=== PATIENT | female | born 1965 | race African-American/Black ===

== ENCOUNTER 2017-01-15 21:27 | Inpatient (IN) ==
[2017-01-15] MEDS ORDERED: ALBUTEROL/IPRATROPIUM 3 ML NEB RESP TX STA ×2 (21:49→22:46)
[2017-01-15] MEDS ORDERED: cefTRIAXone 1,000 MG in SODIUM CHLORIDE 0.9% 100 ML IV STA (21:49)
[2017-01-15] MEDS ORDERED: methylPREDNISolone SOD SUC 125 MG/2 ML VIAL IV STA (21:49)
[2017-01-15] MEDS ORDERED: cefTRIAXone 1,000 MG VIAL ONE (22:01)
[2017-01-15] MEDS ORDERED: methylPREDNISolone SOD SUC 125 MG/2 ML VIAL ONE (22:01)
[2017-01-15 22:24] LABS: Basophils % 0.3 % (0.0-0.8); Eosinophils # 0.1 10*3/uL (0.0-0.87); Eosinophils % 0.8 % (0.00-10.9); Hematocrit 39.5 VOL% (35.7-47.0); Hemoglobin 13.3 GM/DL (12.0-16.0); Immature Granulocytes % 0.3 %; Immature Granulocytes Absolute 0.02 #; Lymphocytes # 2.8 10*3/uL (1.4-4.0); Lymphocytes % 38.2 % (21.3-54.2); Mean Corpuscular HGB Conc 33.7 GM/DL (32-36); Mean Corpuscular Hemoglobin 35 PG (27-34); Mean Corpuscular Volume 102.9 FL (87-102); Mean Platelet Volume 12.1 FL (9.6-12.0); Monocytes # 0.5 10*3/uL (0.11-0.8); Monocytes % 6.8 % (1.7-12.7); Neutrophils # 3.9 10*3/uL (1.4-7.4); Neutrophils % 53.6 % (38.7-73.9); Platelet Count 220 T/CUMM (130-400); Red Blood Count 3.84 MC/CUMM (3.8-5.5); Red Cell Distribution Width 12.5 % (9.3-17.3); White Blood Count 7.2 T/CUMM (4-12)
[2017-01-15 22:36] LABS: Calcium 8.8 MG/DL (8.5-10.1); Magnesium 1.8 MG/DL (1.8-2.4); Osmolality,Calculated 293.8 MOS/KG (273-304); Potassium 3.5 MMOL/L (3.5-5.1)
[2017-01-15] MEDS ORDERED: SODIUM CHLORIDE 0.9% 1,000 ML IV STA (23:37)
[2017-01-15] MEDS ORDERED: INSULIN REGULAR 100 UNIT/ML IV STA (23:37)
[2017-01-15] MEDS ORDERED: INSULIN REGULAR 100 UNIT/ML ONE (23:56)
--- NOTE | 2017-01-16 | Emergency Department Note ---
ILor Emily, am scribing for, and in the presence of, Andrei Craig MD 21:55. Kiara Vidal Hans, MD, personally performed the services described in this documentation, ascribed by Helena Horowitz in my presence, and it is both accurate and complete . Arrival - Arrival Chief Complaint: Shortness of Breath Stated Complaint: ASTHMA/SINUS/RUNNY NOSE/COUGH ED Nursing Triage Note: Patient to triage with c/o productive cough and runny nose since last Sunday. Patient was seen in ED at that time and sent home with medication and has not had any relief of S/S. audible wheezing in triage. Patient c/o SOB with excertion. Mode of Arrival: Ambulatory Limitations: No Limitations Source: Patient Time Seen by Provider: 01/15/17 21:44 - History of Present Illness HPI Narrative: Pt is a 51 y/o female who came to ED with c/o productive cough and wheezing that has been ongoing since Sunday but has worsened. Pt has associated sxs of EASLEY and mucus is clear in color from cough. Pt is a current smoker but notes trying to quit. She states she was seen in ED on January 10 for same sxs and given IV abx with breathing tx and prescription of abx to take home. Pt reports seeing Dr. Chari Garcia the same day and was given a Z home instead of taking the other. Pt denies steroids taken. Pt reports using inhalers but no relief. Onset (ago): day(s) Consistency: constant Severity: mild, moderate Severity scale (1-10): 4 Quality: fullness Allergies/Adverse Reactions: Allergies Allergy/AdvReac Type Severity Reaction Status Date / Time No Known Allergies Allergy Verified 01/15/17 21:33 Home Medications: Home Medications Medication Instructions Recorded Confirmed Type Aspirin [Ecotrin] 81 mg PO DAILY 01/27/16 01/15/17 History Insulin Glargine,Hum.rec.anlog 30 unit SUBCUT AC SUPPER 01/27/16 01/15/17 History [Lantus SoloStar] Insulin Lispro [HumaLOG KwikPen] 15 unit SUBCUT BID 01/27/16 01/15/17 History Linagliptin [Tradjenta] 5 mg PO DAILY 01/27/16 01/15/17 History Pravastatin Sodium 40 mg PO DAILY 01/27/16 01/15/17 History Abacavir/Dolutegravir/Lamivudi 1 each PO DAILY 08/15/16 01/15/17 History [Triumeq Tablet] Albuterol Sulfate [Proair HFA] 2 puff INH Q4H PRN #1 inhaler 10/02/16 01/15/17 Rx Beclomethasone 80 Mcg Inhaler 80 mcg INH BID #1 inhaler 10/02/16 01/15/17 Rx [Qvar 80 Mcg] Fluticasone 50 Mcg Nasal [place] 1 spray BOTH NARES BID #1 gm 10/02/16 01/15/17 Rx [Flonase Nasal [place]] Abacavir/Dolutegravir/Lamivudi 1 tablet PO DAILY 01/15/17 01/15/17 History [Triumeq Tablet] Amoxicillin/Potassium Clav 1 tablet PO BID 01/15/17 01/15/17 History [Amox-Clav 500-125 mg Tablet] Famotidine 1 tablet PO BID 01/15/17 01/15/17 History Valsartan/Hydrochlorothiazide 1 tablet PO DAILY 01/15/17 01/15/17 History [Valsartan-Hctz 160-12.5 mg Tab] methylPREDNISolone 1 tablet PO DIRECTED 01/15/17 01/15/17 History [Methylprednisolone] Review of System - Review of System 12 point system: reviewed and no additional remarkable complaints except as stated - Review of System Constitutional: Absent: chills, fever Head/Ears/Nose/Throat: Present: nasal drainage. Absent: sore throat Respiratory: Present: cough, wheezing Cardiovascular: Absent: chest pain, syncope Gastrointestinal: Absent: abdominal pain, nausea, vomiting Musculoskeletal: Absent: arm pain, back pain, leg pain, neck pain Skin: Absent: rash Neurological: Present: headache Medical,Surgical,& Family Hx - Medical History Cardio: History of: Hypertension, Cardiovascular Problems (STENT IN RT LEG) Neurology: No history of: Seizures Endocrine: History of: Diabetes Mellitus (IDDM), Dyslipidemia Respiratory: History of: Asthma, Obstructive Sleep Apnea Gastrointestinal: History of: GERD Other: History of: HIV - Surgical History Cardiac Surgeries: Sugical HX of: Cardiac Catheterization Abdominal Surgeries: Surgical HX of: Cholecystectomy - Family History Family History: Reports;: Family Diabetes, Family Heart Disease, Family Hypertension - Social History Smoking Status: Current every day smoker Frequency of Alcohol Use: None Type of Drug Use: None Functional capacity: independent ambulation Exam Vital Signs: Vital Signs Temperature 97.7 F 01/15/17 21:28 Pulse Rate 113 H 01/15/17 22:58 Respiratory Rate 20 01/15/17 22:58 Blood Pressure 125/85 01/15/17 22:30 O2 Sat by Pulse Oximetry 100 01/15/17 22:58 - General General appearance: alert, in no apparent distress, obese - Head Head exam: Present: atraumatic, normocephalic - Eye Eye exam: Present: PERRL, EOMI - ENT ENT exam: Present: mucous membranes moist. Absent: mucous membranes dry - Neck Neck exam: Present: full ROM. Absent: tenderness - Chest Chest inspection: Present: symmetric chest wall rise. Absent: tenderness - Respiratory Respiratory exam: Present: wheezes (inspiratory and expiratory wheezing bilaterally but worse in left). Absent: normal lung sounds bilaterally, accessory muscle use - Cardiovascular Cardiovascular exam: Present: tachycardia, normal heart sounds. Absent: murmur - Extremities Exam Extremities exam: Present: full ROM. Absent: tenderness, pedal edema - Neurological Exam Neurological exam: Present: alert, oriented X3, CN II-XII intact. Absent: motor sensory deficit - Psychiatric Psychiatric exam: Present: normal affect, normal mood - Skin Skin exam: Present: warm, dry Course Course Narrative: This patient was evaluated in the ER with lab work as well as chest x-ray. She responded somewhat to breathing treatments 2 but still had some wheezing so she was admitted for steroids and breathing treatments and also placed on antibiotics. She also had a blood glucose of 41 and this was treated in the ER with fluids and insulin and she will be admitted for fine tuning of this as well. Her admission was discussed with Dr. Prescott who is covering for Dr. Garcia whom the patient identifies as her primary care provider. Results - Labs CBC & BMP: 01/15/17 22:05 01/15/17 22:05 Lab Results: I have reviewed the patients labs Labs: Laboratory Tests 01/15/17 01/15/17 22:05 22:05 MCV 102.9 H MCH 35 H MPV 12.1 H Creatinine 1.40 H Glucose 481 H Disposition Clinical Impression: Asthma with exacerbation Case discussed with: patient Disposition: Still a Patient Condition: Stable Instructions: Asthma (ED) Time of Disposition: 00:00
[2017-01-16] MEDS ORDERED: GLUCAGON 1 MG VIAL IM PRN (00:18)
[2017-01-16] MEDS ORDERED: DEXTROSE 50% 25 GM/50 ML VIAL IV PRN (00:18)
[2017-01-16] MEDS: SODIUM CHLORIDE 0.9% 1,000 ML IV SCH ×3 (01:48→16:52)
[2017-01-16] MEDS: ALBUTEROL/IPRATROPIUM 3 ML NEB RESP TX SCH ×6 (02:51→23:50)
[2017-01-16] MEDS ORDERED: methylPREDNISolone SOD SUC 125 MG/2 ML VIAL IV SCH (06:00)
--- NOTE | 2017-01-16 06:04 | XRay Report ---
XR chest 2V Indication: Cough. Dyspnea. Shortness of breath. Comparison: Chest x-ray 01/10/2017 Technique: PA and lateral chest x-ray was performed. Findings: Heart size, mediastinal contour, and hilar structures demonstrate no significant abnormalities. The lung parenchyma is clear. Bones and soft tissues demonstrate no significant abnormalities. Impression: 1. No active cardiopulmonary disease. 01/16/2017 6:01 AM PROCEDURE INTERPRETED AT [facility] DEPARTMENT OF RADIOLOGY Final Report Signed by: Dr. Tyler Blanca
[2017-01-16 06:15] LABS: Basophils % 0.1 % (0.0-0.8); Hematocrit 37.9 VOL% (35.7-47.0); Hemoglobin 12.4 GM/DL (12.0-16.0); Immature Granulocytes % 0.2 %; Immature Granulocytes Absolute 0.02 #; Lymphocytes # 0.5 10*3/uL (1.4-4.0); Lymphocytes % 5.6 % (21.3-54.2); Mean Corpuscular HGB Conc 32.7 GM/DL (32-36); Mean Corpuscular Hemoglobin 34 PG (27-34); Mean Corpuscular Volume 103.8 FL (87-102); Mean Platelet Volume 13.1 FL (9.6-12.0); Monocytes # 0.1 10*3/uL (0.11-0.8); Monocytes % 1.2 % (1.7-12.7); Neutrophils # 7.7 10*3/uL (1.4-7.4); Neutrophils % 92.9 % (38.7-73.9); Platelet Count 193 T/CUMM (130-400); Red Blood Count 3.65 MC/CUMM (3.8-5.5); Red Cell Distribution Width 12.8 % (9.3-17.3); White Blood Count 8.3 T/CUMM (4-12)
--- NOTE | 2017-01-16 06:39 | XRay Report ---
XR chest 1V portable Indication: Shortness of breath Comparison: Chest x-ray 01/15/2017. Technique: Portable AP chest was performed. Findings: The heart size appears within normal limits. Beam attenuation is noted within the lower chest likely secondary to chest wall soft tissues. Pulmonary vasculature demonstrates no specific abnormality. Hilar structures demonstrate fairly symmetric appearance. The lungs appear clear. Bones and soft tissues demonstrate no evidence of acute pathology. Impression: 1. No evidence of acute pathology. 01/16/2017 6:36 AM PROCEDURE INTERPRETED AT [facility] DEPARTMENT OF RADIOLOGY Final Report Signed by: Dr. Tyler Blanca
[2017-01-16 06:43] LABS: Hypochromasia 1+; Lymphocytes 5 % (20-55); Platelet Estimate Normal; Segmented Neutrophils 95 % (50-85); Total Cells Counted 100
[2017-01-16 06:51] LABS: Calcium 8.6 MG/DL (8.5-10.1); Osmolality,Calculated 300.5 MOS/KG (273-304); Potassium 3.8 MMOL/L (3.5-5.1)
--- NOTE | 2017-01-16 08:18 | Family Practice History&Phys ---
Assessment and Plan (1) HIV (human immunodeficiency virus infection) Status: Acute Assessment and plan: 01/16/2070: This is controlled at present. Current Visit: No (2) Asthma with exacerbation Status: Acute Assessment and plan: 12/20/2016, will continue present therapy. X-ray of the sinuses will also be ordered per Current Visit: Yes History of Present Illness Chief complaint: Wheezing History of present illness: Ms. Krishnan is a 51 year old female Patient 51-year-old black female admitted to the emergency room with increasing shortness of breath and wheezing. Patient has long history of asthma and the only medication she has been taking his an albuterol inhaler. Patient does have a history of HIV and has been well controlled with her present medications. She told me her last CD4 count was excellent. She is not having any fever or chills and states her cough is nonproductive. She is having some sinus symptoms. Patient denies any chest pain and she is not short of breath at rest. Home Medications Medication Instructions Recorded Confirmed Type Aspirin [Ecotrin] 81 mg PO DAILY 01/27/16 01/16/17 History Insulin Glargine,Hum.rec.anlog 30 unit SUBCUT AC SUPPER 01/27/16 01/16/17 History [Lantus SoloStar] Insulin Lispro [HumaLOG KwikPen] 15 unit SUBCUT BID 01/27/16 01/16/17 History Linagliptin [Tradjenta] 5 mg PO DAILY 01/27/16 01/16/17 History Pravastatin Sodium 40 mg PO DAILY 01/27/16 01/16/17 History Albuterol Sulfate [Proair HFA] 2 puff INH Q4H PRN #1 inhaler 10/02/16 01/16/17 Rx Beclomethasone 80 Mcg Inhaler 80 mcg INH BID #1 inhaler 10/02/16 01/16/17 Rx [Qvar 80 Mcg] Fluticasone 50 Mcg Nasal [place] 1 spray BOTH NARES BID #1 gm 10/02/16 01/16/17 Rx [Flonase Nasal [place]] Abacavir/Dolutegravir/Lamivudi 1 tablet PO DAILY 01/15/17 01/16/17 History [Triumeq Tablet] Famotidine 1 tablet PO BID 01/15/17 01/16/17 History Valsartan/Hydrochlorothiazide 1 tablet PO DAILY 01/15/17 01/16/17 History [Valsartan-Hctz 160-12.5 mg Tab] Folic Acid Tab 0.4 mg PO DAILY 01/16/17 01/16/17 History Allergies Allergy/AdvReac Type Severity Reaction Status Date / Time No Known Allergies Allergy Verified 01/15/17 21:33 - Constitutional Constitutional: Present: fatigue. Absent: chills, fever(s) - EENT Eyes: Absent: blurry vision, loss of vision Ears: Absent: decreased hearing, ear pain Nose, mouth and throat: Present: nasal congestion. Absent: neck mass, neck pain , sore throat - Cardiovascular Cardiovascular: Present: dyspnea, dyspnea on exertion. Absent: chest pain at rest, chest pain with activity - Respiratory Respiratory: Present: cough, dyspnea, wheezing - Gastrointestinal Gastrointestinal: Absent: abdominal pain, diarrhea, dysphagia, nausea, vomiting - Genitourinary Genitourinary: Absent: dysuria, flank pain, hematuria, urinary frequency - Musculoskeletal Musculoskeletal: Absent: arthralgias, back pain - Neurological Neurological: Absent: confusion, focal weakness, numbness, paresthesias - Psychiatric Psychiatric: Absent: anxiety, confusion - Endocrine Endocrine: Present: fatigue. Absent: polydipsia, polyphagia - Hematologic/Lymphatic Hematologic/Lymphatic: Absent: easy bleeding, easy bruising Medical,Surgical,& Family Hx - Medical History Cardio: History of: Hypertension, Cardiovascular Problems (STENT IN RT LEG) Neurology: No history of: Seizures Endocrine: History of: Diabetes Mellitus (IDDM), Dyslipidemia Respiratory: History of: Asthma, Obstructive Sleep Apnea Gastrointestinal: History of: GERD Other: History of: HIV - Surgical History Cardiac Surgeries: Sugical HX of: Cardiac Catheterization Abdominal Surgeries: Surgical HX of: Cholecystectomy - Family History Family History: Reports;: Family Diabetes, Family Heart Disease, Family Hypertension - Social History Smoking Status: Current every day smoker Frequency of Alcohol Use: None Type of Drug Use: None Exam - Constitutional Vitals: Period Temp Pulse Resp BP Sys/Toro Pulse Ox Last 24 Hr 97.2 F-97.8 F 76-119 16-26 125-154/84-95 93-100 Exam: General: Objective patient is a well-developed black female in no acute distress. Patient has no dyspnea at rest. HEENT: Pupils equal and reactive to light. Patent nares and airway Neck: No meningismus, adenopathy, thyromegaly. There are no auscultated carotid bruits. Cardiovascular: Regular rhythm. No murmurs or gallops Chest: Patient's noted to have mild expiratory wheeze scattered to both lung hunt Abdomen: Soft nontender to palpation No masses, rebound, guarding or tenderness. Neuro: Cranial nerves intact and DTRs and strength symmetric in all extremities. Dermatologic: No evidence of abnormal lesions or masses. Musculoskeletal: There is no joint swelling or tenderness or deformity. Extremities: Is no calf swelling or tenderness Results - Labs CBC & BMP: 01/16/17 04:16 01/16/17 04:16 Lab Results: I have reviewed the past 24 hour labs - Diagnostic Findings Procedure: Chest x-ray: report reviewed by me (No acute infiltrate seen.)
[2017-01-16] MEDS ORDERED: BECLOMETHASONE 40 MCG/PUFF INHALER 8.7 GM INH SCH (09:00)
--- NOTE | 2017-01-16 09:04 | XRay Report ---
XR chest 2V Indication: Dyspnea Comparison: Chest x-ray dated January 16, 2017 Technique: Frontal and lateral views of the chest. Findings: Heart size appears within normal limits. Mild bibasilar atelectasis/consolidation. This is greatest within the lingula and right middle lobe. Pneumonia not excluded. Visualized osseous and surrounding soft tissue structures appear grossly unchanged.. IMPRESSION: As above. PROCEDURE INTERPRETED AT [facility] DEPARTMENT OF RADIOLOGY Final Report Signed by: Dr Mamadou Hinson
--- NOTE | 2017-01-16 09:06 | XRay Report ---
XR sinus Indication: Sinusitis Comparison: None Technique: 3 views of the sinuses Findings: Opacification is suggested within the inferior aspects of the bilateral maxillary sinuses. No definite air-fluid levels. IMPRESSION: As above. PROCEDURE INTERPRETED AT [facility] DEPARTMENT OF RADIOLOGY Final Report Signed by: Dr Mamadou Hinson
[2017-01-16] MEDS: INSULIN REGULAR 100 UNIT/ML SUBCUT SCH ×4 (09:15→20:58)
[2017-01-16] MEDS: ASPIRIN EC 81 MG TABLET PO SCH (09:16)
[2017-01-16] MEDS: FLUTICASONE 50 MCG NASAL SPRAY 16 GM BOTTLE BOTH NARES SCH ×2 (09:16→20:37)
[2017-01-16] MEDS: FOLIC ACID 0.4 MG TABLET PO SCH (09:16)
[2017-01-16] MEDS: VALSARTAN/HCTZ 160-12.5 MG TABLET PO SCH (09:16)
[2017-01-16] MEDS: methylPREDNISolone SOD SUC 40 MG/1 ML VIAL IV SCH ×2 (09:16→16:53)
[2017-01-16] MEDS: INSULIN LISPRO 100 UNIT/ML SUBCUT SCH ×2 (09:17→20:58)
[2017-01-16] MEDS: PRAVASTATIN 40 MG TABLET PO SCH (09:17)
[2017-01-16] MEDS: FAMOTIDINE 20 MG TABLET PO SCH ×2 (09:17→20:35)
[2017-01-16] MEDS: BECLOMETHASONE 80 MCG/PUFF INHALER 8.7 GM INH SCH ×2 (09:17→20:37)
[2017-01-16] MEDS: LAMIVUDI PO SCH (09:56)
[2017-01-16] MEDS: DOLUTEGRAVIR PO SCH (09:56)
[2017-01-16] MEDS: ABACAVIR PO SCH (09:56)
[2017-01-16] MEDS ORDERED: INSULIN REGULAR 100 UNIT/ML IV ONE (12:05)
[2017-01-16] MEDS ORDERED: INSULIN GLARGINE 100 UNIT/ML SUBCUT SCH (16:30)
[2017-01-16] MEDS: NYSTATIN 500,000 UNIT/5 ML UDCUP SWISH/SWAL SCH ×2 (17:01→20:35)
[2017-01-16] MEDS: cefTRIAXone 1,000 MG in SODIUM CHLORIDE 0.9% 100 ML IV SCH (20:34)
[2017-01-17] MEDS: SODIUM CHLORIDE 0.9% 1,000 ML IV SCH ×4 (01:55→20:50)
[2017-01-17] MEDS: methylPREDNISolone SOD SUC 40 MG/1 ML VIAL IV SCH ×3 (01:56→17:44)
[2017-01-17] MEDS: ALBUTEROL/IPRATROPIUM 3 ML NEB RESP TX SCH ×6 (03:30→23:53)
--- NOTE | 2017-01-17 06:46 | XRay Report ---
XR chest 2V Indication: Shortness of breath. Comparison: Chest x-ray 01/16/2017 Technique: PA and lateral chest x-ray was performed. Findings: Beam attenuation in the lower chest soft tissues is suggested. Heart size, mediastinal contour, and hilar structures demonstrate no significant abnormalities. The lung parenchyma is clear. Bones and soft tissues demonstrate no significant abnormalities. Impression: 1. No active cardiopulmonary disease. 01/17/2017 6:43 AM PROCEDURE INTERPRETED AT [facility] DEPARTMENT OF RADIOLOGY Final Report Signed by: Dr. Tyler Blanca
--- NOTE | 2017-01-17 07:01 | Physician Query Form ---
CLICK EDIT DOCUMENT TO SELECT QUERY ANSWER --> OK --> SIGN Dona Blanca RN, CCDS Certified Clinical System Operation Superintendent W) [phone] (f) [phone] [email or web address] PROVIDERS: Make your selection(s) from the choices in EACH section by typing an "x" and enter comments in the comment section. Please use your independent medical judgment in providing your response. This request does not imply that any particular answer is desired or expected. CLINICAL INDICATORS: (Providers should not edit this section) The medical record indicates that the patient was admitted with asthma exacerbation, and was placed on Duoneb, Ceftriaxone, Flonase, Methylprednisolone. Based on documentation of Asthma, can you please provide further specificity regarding the diagnosis? ( ) Mild intermittent extrinsic asthma with acute exacerbation (x ) Moderate persistent extrinsic asthma with acute exacerbation ( ) Severe persistent extrinsic asthma with acute exacerbation ( ) Mild intermittent extrinsic asthma with status asthmaticus ( ) Moderate intermittent extrinsic asthma with status asthmaticus ( ) Severe intermittent extrinsic asthma with status asthmaticus ( ) Other, please specify: ( ) Unable to determine COMMENTS: PLEASE ALSO DOCUMENT RESPONSE IN PROGRESS NOTES AND/OR DISCHARGE SUMMARY Use of terms such as suspected, likely, or probable (associated with a specific diagnosis that is being evaluated, monitored, or treated as if it exists) are acceptable and can be restated in the discharge summary if not ruled out. MTDD
--- NOTE | 2017-01-17 08:18 | Family Practice Progress Note ---
Family Practice - PN: Subj Interval history: Patient states she may be feeling a little bit better this morning. Her blood sugars certainly improved. Her wheezing persists though it certainly not worse than it was yesterday. I told her it might take a while for her to clear and she understands that. Exam (Progress Note) - Constitutional Vitals: Period Temp Pulse Resp BP Sys/Toro Pulse Ox Last 24 Hr 97.9 F-98.7 F 77-117 16-20 131-159/70-91 95-100 Exam: Objective well-developed white female no acute distress. She looks comfortable in bed and has no dyspnea at rest. Cardiovascular: Heart rates regular without murmurs thrills or gallops. Respiratory: Patient has expiratory wheeze scattered in both lung hunt. Abdomen: Abdomen soft and nontender to palpation. Results - Labs CBC & BMP: 01/16/17 04:16 01/16/17 04:16 Lab Results: I have reviewed the past 24 hour labs Assessment and Plan (1) HIV (human immunodeficiency virus infection) Status: Chronic Assessment and plan: 01/16/2070: This is controlled at present. Current Visit: No (2) Asthma with exacerbation Status: Acute Assessment and plan: 01/16/2017, will continue present therapy. X-ray of the sinuses will also be ordered per 01/17/2017: Patient is improving gradually. Current Visit: Yes Specialty Discharge - Follow Up or Referrals
[2017-01-17] MEDS: NYSTATIN 500,000 UNIT/5 ML UDCUP SWISH/SWAL SCH ×4 (08:58→20:16)
[2017-01-17] MEDS: PRAVASTATIN 40 MG TABLET PO SCH (08:59)
[2017-01-17] MEDS: VALSARTAN/HCTZ 160-12.5 MG TABLET PO SCH (08:59)
[2017-01-17] MEDS: FAMOTIDINE 20 MG TABLET PO SCH ×2 (08:59→20:16)
[2017-01-17] MEDS: INSULIN LISPRO 100 UNIT/ML SUBCUT SCH ×2 (08:59→20:48)
[2017-01-17] MEDS: FOLIC ACID 0.4 MG TABLET PO SCH (08:59)
[2017-01-17] MEDS: ASPIRIN EC 81 MG TABLET PO SCH (08:59)
[2017-01-17] MEDS: INSULIN REGULAR 100 UNIT/ML SUBCUT SCH ×4 (09:00→20:48)
[2017-01-17] MEDS: FLUTICASONE 50 MCG NASAL SPRAY 16 GM BOTTLE BOTH NARES SCH ×2 (09:01→20:15)
[2017-01-17] MEDS: BECLOMETHASONE 80 MCG/PUFF INHALER 8.7 GM INH SCH ×2 (09:01→20:15)
[2017-01-17] MEDS: DOLUTEGRAVIR PO SCH (09:01)
[2017-01-17] MEDS: LAMIVUDI PO SCH (09:01)
[2017-01-17] MEDS: ABACAVIR PO SCH (09:01)
[2017-01-17] MEDS ORDERED: traMADol 50 MG TABLET PO PRN (19:52)
[2017-01-17] MEDS: cefTRIAXone 1,000 MG in SODIUM CHLORIDE 0.9% 100 ML IV SCH (20:16)
[2017-01-18] MEDS: methylPREDNISolone SOD SUC 40 MG/1 ML VIAL IV SCH ×4 (00:24→23:58)
[2017-01-18] MEDS: ALBUTEROL/IPRATROPIUM 3 ML NEB RESP TX SCH ×6 (03:26→23:55)
[2017-01-18] MEDS: SODIUM CHLORIDE 0.9% 1,000 ML IV SCH ×2 (04:09→17:21)
--- NOTE | 2017-01-18 07:55 | Family Practice Progress Note ---
Family Practice - PN: Subj Interval history: Patient states she is doing about the same and she is not having any new problems. She still complained of some sinus irritation but her sinus films are normal. Repeat chest x-ray yesterday showed no acute infiltrates. Patient states she still wheezing and short of breath. Her blood sugars were remaining high and I am going to place her on mealtime insulin. I am asked Dr. Chadwick Saleh to see her as well. Exam (Progress Note) - Constitutional Vitals: Period Temp Pulse Resp BP Sys/Toro Pulse Ox Last 24 Hr 98.3 F-98.8 F 88-107 16-20 138-163/74-88 91-99 Exam: Objective well-developed white female no acute distress. She looks comfortable in bed and has no dyspnea at rest. Cardiovascular: Heart rates regular without murmurs thrills or gallops. Respiratory: Patient has expiratory wheeze scattered in both lung hunt. Abdomen: Abdomen soft and nontender to palpation. Results - Labs CBC & BMP: 01/16/17 04:16 01/16/17 04:16 Lab Results: I have reviewed the past 24 hour labs Assessment and Plan (1) HIV (human immunodeficiency virus infection) Status: Chronic Assessment and plan: 01/16/2070: This is controlled at present. Current Visit: No (2) Asthma with exacerbation Status: Acute Assessment and plan: 01/16/2017, will continue present therapy. X-ray of the sinuses will also be ordered per 01/17/2017: Patient is improving gradually. 01/18/2017: Patient is making very little improvement. Current Visit: Yes Specialty Discharge - Follow Up or Referrals
[2017-01-18] MEDS: INSULIN REGULAR 100 UNIT/ML SUBCUT SCH ×4 (09:38→21:10)
[2017-01-18] MEDS: INSULIN LISPRO 100 UNIT/ML SUBCUT SCH ×3 (09:38→17:15)
[2017-01-18] MEDS: FOLIC ACID 0.4 MG TABLET PO SCH (09:40)
[2017-01-18] MEDS: ASPIRIN EC 81 MG TABLET PO SCH (09:40)
[2017-01-18] MEDS: VALSARTAN/HCTZ 160-12.5 MG TABLET PO SCH (09:40)
[2017-01-18] MEDS: NYSTATIN 500,000 UNIT/5 ML UDCUP SWISH/SWAL SCH ×4 (09:40→20:24)
[2017-01-18] MEDS: FAMOTIDINE 20 MG TABLET PO SCH ×2 (09:41→20:23)
[2017-01-18] MEDS: PRAVASTATIN 40 MG TABLET PO SCH (09:41)
[2017-01-18] MEDS: FLUTICASONE 50 MCG NASAL SPRAY 16 GM BOTTLE BOTH NARES SCH ×2 (09:43→20:24)
[2017-01-18] MEDS: ABACAVIR PO SCH (09:44)
[2017-01-18] MEDS: DOLUTEGRAVIR PO SCH (09:44)
[2017-01-18] MEDS: BECLOMETHASONE 80 MCG/PUFF INHALER 8.7 GM INH SCH ×2 (09:44→20:24)
[2017-01-18] MEDS: LAMIVUDI PO SCH (09:44)
--- NOTE | 2017-01-18 17:15 | Infectious Disease Consult ---
Assessment and Plan (1) Sinusitis Status: Acute Assessment and plan: She has chronic symptoms of nasal and sinus congestion. Her smoking probably does not help this. Findings on x-ray are not that significant. Because of the chronicity and the symptoms seem to be bothering her quite a bit, I am going to order CT scan of the sinuses to make sure we are not dealing with a more serious problem here. Current Visit: Yes (2) Acute asthma exacerbation Status: Acute Assessment and plan: She is getting bronchodilators and steroids. Patient advised strongly that she needs to stop smoking. She probably does not need ceftriaxone but I will leave it for now until we see that there is no serious problem with her sinuses. Current Visit: No (3) HTN (hypertension) Status: Acute Current Visit: No (4) Diabetes Status: Chronic Current Visit: No Qualifiers: Diabetes mellitus type: type 2 (5) HIV (human immunodeficiency virus infection) Status: Chronic Assessment and plan: Well-controlled; continue antiretroviral therapy. Thank you very much for the consult. Current Visit: No (6) Hyperlipidemia Status: Chronic Current Visit: No History of Present Illness Chief complaint: HIV History of present illness: Ms. Krishnan is a 51 year old female Who is a patient of [employer] with HIV infection well controlled on the combination of abacavir, lamivudine and dolutegravir. He has long-standing history of asthma and presented to the hospital 3 days ago with shortness of breath and wheezing. She has not had any fever. She has been getting bronchodilator therapy but is still wheezing quite significantly. Patient complains to me that she is having sinus congestion, pressure, with headaches. This is been going on she says for several weeks. Home Medications Medication Instructions Recorded Confirmed Type Aspirin [Ecotrin] 81 mg PO DAILY 01/27/16 01/16/17 History Insulin Glargine,Hum.rec.anlog 30 unit SUBCUT AC SUPPER 01/27/16 01/16/17 History [Lantus SoloStar] Insulin Lispro [HumaLOG KwikPen] 15 unit SUBCUT BID 01/27/16 01/16/17 History Linagliptin [Tradjenta] 5 mg PO DAILY 01/27/16 01/16/17 History Pravastatin Sodium 40 mg PO DAILY 01/27/16 01/16/17 History Albuterol Sulfate [Proair HFA] 2 puff INH Q4H PRN #1 inhaler 10/02/16 01/16/17 Rx Beclomethasone 80 Mcg Inhaler 80 mcg INH BID #1 inhaler 10/02/16 01/16/17 Rx [Qvar 80 Mcg] Fluticasone 50 Mcg Nasal [place] 1 spray BOTH NARES BID #1 gm 10/02/16 01/16/17 Rx [Flonase Nasal [place]] Abacavir/Dolutegravir/Lamivudi 1 tablet PO DAILY 01/15/17 01/16/17 History [Triumeq Tablet] Famotidine 1 tablet PO BID 01/15/17 01/16/17 History Valsartan/Hydrochlorothiazide 1 tablet PO DAILY 01/15/17 01/16/17 History [Valsartan-Hctz 160-12.5 mg Tab] Folic Acid Tab 0.4 mg PO DAILY 01/16/17 01/16/17 History Allergies Allergy/AdvReac Type Severity Reaction Status Date / Time No Known Allergies Allergy Verified 01/15/17 21:33 12 point system: reviewed and no additional remarkable complaints except as stated (Per HPI) Medical,Surgical,& Family Hx - Medical History Cardio: History of: Hypertension, Cardiovascular Problems (STENT IN RT LEG) Neurology: No history of: Seizures Endocrine: History of: Diabetes Mellitus (IDDM), Dyslipidemia Respiratory: History of: Asthma, Obstructive Sleep Apnea Gastrointestinal: History of: GERD Other: History of: HIV - Surgical History Cardiac Surgeries: Sugical HX of: Cardiac Catheterization Abdominal Surgeries: Surgical HX of: Cholecystectomy - Family History Family History: Reports;: Family Diabetes, Family Heart Disease, Family Hypertension - Social History Smoking Status: Current every day smoker Frequency of Alcohol Use: None Type of Drug Use: None Infectious Disease Exam H&P - Constitutional Vitals: Vital Signs Temp Pulse Resp BP Pulse Ox 97.8 F 100 H 18 164/94 99 01/18/17 11:43 01/18/17 15:20 01/18/17 15:20 01/18/17 11:43 01/18/17 15:20 Intake and Output 01/18/17 01/18/17 01/18/17 07:59 15:59 23:59 Intake Total 1340 / 1340 Balance 1340 / 1340 Intake: IV 1100 / 1100 Ns 1,000 ml @ 125 mls/hr 1000 / 1000 IV .Q8H [facility] Rx#: [id number] Rocephin 1,000 mg In Ns 100 / 100 100 ml @ 200 mls/hr IV Q24H [facility] Rx#:[id number] Oral 240 / 240 Other: Voiding Method Toilet # Voids 3 Exam: General: Patient relatively comfortable but she is coughing intermittently HEENT: Mucous membranes pink and moist, anicteric acyanotic, COMFORT, no oropharyngeal exudates, she is a bit puffy about the eyes Neck: Supple, no thyroid gland enlargement Respiratory system: Breath sounds vesicular, but she has generalized expiratory wheezes or wheezes Cardiovascular: Normal S1 and S2, no murmurs appreciated Abdomen: Normal bowel sounds, soft nontender throughout, no organomegaly or mass Genitourinary: No suprapubic pain or bladder distention Extremities: no edema Skin: No rash Reports - Labs CBC & BMP: 01/16/17 04:16 01/16/17 04:16 Labs: Laboratory Results - last 24 hr 01/17/17 01/17/17 01/18/17 17:21 20:23 07:44 POC Glucose 347 H 381 H 331 H 01/18/17 11:28 POC Glucose 336 H - Diagnostic Findings Procedure: Chest x-ray: image reviewed by me, report reviewed by me (No consolidation or effusion), X-ray: report reviewed by me (Sinus x-ray shows some mucosal thickening in maxillary sinuses but no air-fluid levels) Specialty Discharge - Follow Up or Referrals
--- NOTE | 2017-01-18 18:21 | CT Report ---
CT sinus wo/w con Indication: Chronic congestion and frontal and maxillary areas Comparison: None Technique: Multiple axial tomographic images of the sinuses were obtained before and after the administration of 80 cc Omnipaque 350 intravenous contrast. Coronal and sagittal reformatted images provided. Findings: The visualized paranasal sinuses and bilateral mastoid air cells are essentially clear. No abnormal postcontrast intracranial enhancement. IMPRESSION: No convincing CT evidence of acute or chronic sinusitis. The CT exam was performed using one or more of the following dose reduction techniques: Automated exposure control, adjustment of the mA and/or kV according to patient size, or use of iterative reconstruction technique. PROCEDURE INTERPRETED AT [facility] DEPARTMENT OF RADIOLOGY Final Report Signed by: Dr Mamadou Hinson
[2017-01-18] MEDS: cefTRIAXone 1,000 MG in SODIUM CHLORIDE 0.9% 100 ML IV SCH (20:28)
[2017-01-19] MEDS: SODIUM CHLORIDE 0.9% 1,000 ML IV SCH ×3 (02:01→18:33)
--- NOTE | 2017-01-19 05:24 | Family Practice Progress Note ---
Family Practice - PN: Subj Interval history: Patient states she is feeling a little bit better but she still wheezing quite a bit. She still having sinusitis and congestion symptoms but her CT of her sinuses were also unrevealing. I told her the best thing she could do is quit smoking if she wants to get well and stay well. She still has bronchospasm and I told her she would surely be in through the weekend. Exam (Progress Note) - Constitutional Vitals: Period Temp Pulse Resp BP Sys/Toro Pulse Ox Last 24 Hr 97.4 F-98.5 F 92-112 16-20 130-165/73-94 91-100 Exam: Objective well-developed white female no acute distress. She looks comfortable in bed and has no dyspnea at rest. Cardiovascular: Heart rates regular without murmurs thrills or gallops. Respiratory: Patient has expiratory wheeze scattered in both lung hunt. Abdomen: Abdomen soft and nontender to palpation. Results - Labs CBC & BMP: 01/16/17 04:16 01/16/17 04:16 Lab Results: I have reviewed the past 24 hour labs - Diagnostic Findings Procedure: CT: report reviewed by me (CT sinuses were unremarkable.) Assessment and Plan (1) HIV (human immunodeficiency virus infection) Status: Chronic Assessment and plan: 01/16/2070: This is controlled at present. Current Visit: No (2) Asthma with exacerbation Status: Acute Assessment and plan: 01/16/2017, will continue present therapy. X-ray of the sinuses will also be ordered per 01/17/2017: Patient is improving gradually. 01/18/2017: Patient is making very little improvement. 01/19/2017: Patient's making slight improvement will be into the weekend. I will turn her back over to Dr. Garcia. Current Visit: Yes Specialty Discharge - Follow Up or Referrals
[2017-01-19] MEDS: ALBUTEROL/IPRATROPIUM 3 ML NEB RESP TX SCH ×6 (06:44→23:52)
[2017-01-19] MEDS: NYSTATIN 500,000 UNIT/5 ML UDCUP SWISH/SWAL SCH ×4 (09:05→21:36)
[2017-01-19] MEDS: FOLIC ACID 0.4 MG TABLET PO SCH (09:05)
[2017-01-19] MEDS: PRAVASTATIN 40 MG TABLET PO SCH (09:05)
[2017-01-19] MEDS: VALSARTAN/HCTZ 160-12.5 MG TABLET PO SCH (09:05)
[2017-01-19] MEDS: INSULIN REGULAR 100 UNIT/ML SUBCUT SCH ×4 (09:05→21:36)
[2017-01-19] MEDS: FAMOTIDINE 20 MG TABLET PO SCH ×2 (09:05→21:36)
[2017-01-19] MEDS: INSULIN LISPRO 100 UNIT/ML SUBCUT SCH ×3 (09:05→17:05)
[2017-01-19] MEDS: ASPIRIN EC 81 MG TABLET PO SCH (09:05)
[2017-01-19] MEDS: ABACAVIR PO SCH (09:06)
[2017-01-19] MEDS: LAMIVUDI PO SCH (09:06)
[2017-01-19] MEDS: BECLOMETHASONE 80 MCG/PUFF INHALER 8.7 GM INH SCH ×2 (09:06→21:35)
[2017-01-19] MEDS: FLUTICASONE 50 MCG NASAL SPRAY 16 GM BOTTLE BOTH NARES SCH ×2 (09:06→21:35)
[2017-01-19] MEDS: DOLUTEGRAVIR PO SCH (09:06)
[2017-01-19] MEDS: methylPREDNISolone SOD SUC 40 MG/1 ML VIAL IV SCH ×3 (09:09→23:58)
--- NOTE | 2017-01-19 11:17 | Infectious Disease Progress ---
Assessment and Plan (1) Sinusitis Status: Acute Assessment and plan: CT sinuses was negative and I think her symptoms are related to allergic rhinitis. The patient advised again that she needs to stop smoking. Current Visit: Yes (2) Acute asthma exacerbation Status: Acute Assessment and plan: She is getting bronchodilators and steroids. Patient advised strongly that she needs to stop smoking. She is wondering why the wheezing is taking so long to resolve but I told her it will take time. No evidence of infection therefore I will stop the ceftriaxone. We will sign off now. Call again as needed. Current Visit: No (3) HTN (hypertension) Status: Acute Current Visit: No (4) Diabetes Status: Chronic Current Visit: No Qualifiers: Diabetes mellitus type: type 2 (5) HIV (human immunodeficiency virus infection) Status: Chronic Assessment and plan: Well-controlled; continue antiretroviral therapy. Current Visit: No (6) Hyperlipidemia Status: Chronic Current Visit: No Infectious Disease - PN: Subj Interval history: Patient doing fairly okay but still wheezing and having shortness of breath with exertion. Says she still having sinus congestion. No fever. No nausea vomiting or diarrhea. Infectious Disease Exam (PN) - Constitutional Vitals: Temp Pulse Resp BP Pulse Ox 97.1 F L 102 H 20 154/89 100 01/19/17 07:39 01/19/17 07:48 01/19/17 07:48 01/19/17 07:39 01/19/17 07:48 Exam: General appearance: no acute distress - Eye Eye exam: Present: EOMI. no icterus Pupils: Present: COMFORT - ENT ENT exam: no oral exudates - Respiratory Respiratory exam: vesicular BS, but still with diffuse wheezes - Cardiovascular Cardiovascular exam: regular rate and rhythm, no murmurs - GI/Abdominal GI/Abdominal exam: normal bowel sounds, soft, non-tender, no organomegaly or mass - Extremities Exam Extremities exam: no edema - Skin Skin exam: no rash Results - Labs CBC & BMP: 01/16/17 04:16 01/16/17 04:16 Lab Results: I have reviewed the past 24 hour labs - Diagnostic Findings Procedure: CT: report reviewed by me (Sinus CT negative for sinus disease) Specialty Discharge - Follow Up or Referrals
[2017-01-19] MEDS: DESITIN 4OZ/NYSTATIN 15 GRAM MIXTURE PASTE TOP SCH (21:37)
[2017-01-20] MEDS: SODIUM CHLORIDE 0.9% 1,000 ML IV SCH ×2 (03:25→10:55)
[2017-01-20] MEDS: ALBUTEROL/IPRATROPIUM 3 ML NEB RESP TX SCH ×5 (04:12→20:43)
[2017-01-20] MEDS: INSULIN REGULAR 100 UNIT/ML SUBCUT SCH ×4 (08:43→21:08)
[2017-01-20] MEDS: INSULIN LISPRO 100 UNIT/ML SUBCUT SCH ×3 (08:44→17:17)
[2017-01-20] MEDS: VALSARTAN/HCTZ 160-12.5 MG TABLET PO SCH (08:45)
[2017-01-20] MEDS: ASPIRIN EC 81 MG TABLET PO SCH (08:46)
[2017-01-20] MEDS: FLUCONAZOLE 100 MG TABLET PO SCH (08:46)
[2017-01-20] MEDS: methylPREDNISolone SOD SUC 40 MG/1 ML VIAL IV SCH ×2 (08:46→12:20)
[2017-01-20] MEDS: FOLIC ACID 0.4 MG TABLET PO SCH (08:46)
[2017-01-20] MEDS: NYSTATIN 500,000 UNIT/5 ML UDCUP SWISH/SWAL SCH ×4 (08:46→21:08)
[2017-01-20] MEDS: PRAVASTATIN 40 MG TABLET PO SCH (08:46)
[2017-01-20] MEDS: FAMOTIDINE 20 MG TABLET PO SCH ×2 (08:46→21:08)
[2017-01-20] MEDS: ABACAVIR PO SCH (08:48)
[2017-01-20] MEDS: BECLOMETHASONE 80 MCG/PUFF INHALER 8.7 GM INH SCH ×2 (08:48→21:08)
[2017-01-20] MEDS: LAMIVUDI PO SCH (08:48)
[2017-01-20] MEDS: DOLUTEGRAVIR PO SCH (08:48)
[2017-01-20] MEDS: FLUTICASONE 50 MCG NASAL SPRAY 16 GM BOTTLE BOTH NARES SCH ×2 (08:49→21:08)
[2017-01-20] MEDS: POLYETHYLENE GLYCOL POWDER 17 GM PACK PO SCH (08:51)
[2017-01-20] MEDS: DESITIN 4OZ/NYSTATIN 15 GRAM MIXTURE PASTE TOP SCH ×2 (10:55→21:09)
--- NOTE | 2017-01-20 12:10 | Internal Med Progress Note ---
Assessment and Plan (1) Asthma with exacerbation Status: Acute Assessment and plan: 51-year-old female admitted to acute care * Acute asthma exacerbation. She is doing better. Will taper her steroid * Diabetes. Her blood sugars are quite high. Decreasing steroid should help * Allergic rhinitis. Continue current treatment * She is drinking well. Will decrease IV fluids Current Visit: Yes (2) HTN (hypertension) Status: Acute Current Visit: No (3) Diabetes Status: Chronic Current Visit: No Qualifiers: Diabetes mellitus type: type 2 (4) HIV (human immunodeficiency virus infection) Status: Chronic Current Visit: No (5) Hyperlipidemia Status: Chronic Current Visit: No Internal Medicine - PN: Subj Interval history: Patient is feeling some better. She denies any chest pain or shortness of breath. She is still having some cough. Exam (Progress Note) - Constitutional Vitals: Period Temp Pulse Resp BP Sys/Toro Pulse Ox Last 24 Hr 97.5 F-98.2 F 85-102 16-20 122-153/62-96 91-99 Exam: Examination: GENERAL: Morbidly obese female who is in no acute distress HEENT: PERRLA. EOMI. NECK: Neck is supple. CVS: Regular rate and rhythm. S1 and S2 are normal. RESPIRATORY: Lungs are clear. Few rhonchi ABDOMEN: Soft and nontender. EXT: No edema. Peripheral pulses are present. MSK: No obvious deformity. Results - Labs CBC & BMP: 01/16/17 04:16 01/16/17 04:16 Specialty Discharge - Follow Up or Referrals
[2017-01-21] MEDS: methylPREDNISolone SOD SUC 40 MG/1 ML VIAL IV SCH ×2 (00:14→08:59)
[2017-01-21] MEDS: ALBUTEROL/IPRATROPIUM 3 ML NEB RESP TX SCH ×6 (01:55→19:51)
[2017-01-21 06:17] LABS: Basophils % 0.1 % (0.0-0.8); Hematocrit 35.4 VOL% (35.7-47.0); Hemoglobin 11.6 GM/DL (12.0-16.0); Immature Granulocytes % 1.8 %; Immature Granulocytes Absolute 0.19 #; Lymphocytes # 1.2 10*3/uL (1.4-4.0); Lymphocytes % 11.8 % (21.3-54.2); Mean Corpuscular HGB Conc 32.8 GM/DL (32-36); Mean Corpuscular Hemoglobin 34 PG (27-34); Mean Corpuscular Volume 104.7 FL (87-102); Monocytes # 0.6 10*3/uL (0.11-0.8); Monocytes % 5.7 % (1.7-12.7); Neutrophils # 8.4 10*3/uL (1.4-7.4); Neutrophils % 80.6 % (38.7-73.9); Platelet Count 175 T/CUMM (130-400); Red Blood Count 3.38 MC/CUMM (3.8-5.5); White Blood Count 10.5 T/CUMM (4-12)
[2017-01-21 06:41] LABS: Calcium 8.7 MG/DL (8.5-10.1); Osmolality,Calculated 294.4 MOS/KG (273-304)
--- NOTE | 2017-01-21 07:40 | Internal Med Progress Note ---
Assessment and Plan (1) Asthma with exacerbation Status: Acute Assessment and plan: 51-year-old female admitted to acute care * Acute asthma exacerbation. Her breathing has improved. Further decrease steroids * Diabetes. Her blood sugars are quite high. * Allergic rhinitis. Continue current treatment * Hopefully she will be able to go home in the morning Current Visit: Yes (2) HTN (hypertension) Status: Acute Current Visit: No (3) Diabetes Status: Chronic Current Visit: No Qualifiers: Diabetes mellitus type: type 2 (4) HIV (human immunodeficiency virus infection) Status: Chronic Current Visit: No (5) Hyperlipidemia Status: Chronic Current Visit: No Internal Medicine - PN: Subj Interval history: Patient is feeling some better. Her breathing has improved. Her cough is better Exam (Progress Note) - Constitutional Vitals: Period Temp Pulse Resp BP Sys/Toro Pulse Ox Last 24 Hr 97.1 F-98.7 F 80-114 16-20 144-166/66-86 95-100 Exam: Examination: GENERAL: Morbidly obese female who is in no acute distress NECK: Neck is supple. CVS: Regular rate and rhythm. S1 and S2 are normal. RESPIRATORY: Lungs are clear. Few rhonchi ABDOMEN: Soft and nontender. EXT: No edema. Results - Labs CBC & BMP: 01/21/17 04:30 01/21/17 04:30 Lab Results: I have reviewed the past 24 hour labs Specialty Discharge - Follow Up or Referrals
[2017-01-21] MEDS: NYSTATIN 500,000 UNIT/5 ML UDCUP SWISH/SWAL SCH ×4 (08:58→21:46)
[2017-01-21] MEDS: POLYETHYLENE GLYCOL POWDER 17 GM PACK PO SCH (08:59)
[2017-01-21] MEDS: VALSARTAN/HCTZ 160-12.5 MG TABLET PO SCH (09:00)
[2017-01-21] MEDS: FLUCONAZOLE 100 MG TABLET PO SCH (09:00)
[2017-01-21] MEDS: FAMOTIDINE 20 MG TABLET PO SCH ×2 (09:00→21:46)
[2017-01-21] MEDS: PRAVASTATIN 40 MG TABLET PO SCH (09:00)
[2017-01-21] MEDS: FOLIC ACID 0.4 MG TABLET PO SCH (09:00)
[2017-01-21] MEDS: INSULIN LISPRO 100 UNIT/ML SUBCUT SCH ×3 (09:01→16:06)
[2017-01-21] MEDS: INSULIN REGULAR 100 UNIT/ML SUBCUT SCH ×4 (09:01→21:46)
[2017-01-21] MEDS: ASPIRIN EC 81 MG TABLET PO SCH (09:01)
[2017-01-21] MEDS: DOLUTEGRAVIR PO SCH (09:02)
[2017-01-21] MEDS: LAMIVUDI PO SCH (09:02)
[2017-01-21] MEDS: ABACAVIR PO SCH (09:02)
[2017-01-21] MEDS: FLUTICASONE 50 MCG NASAL SPRAY 16 GM BOTTLE BOTH NARES SCH ×2 (09:02→21:46)
[2017-01-21] MEDS: BECLOMETHASONE 80 MCG/PUFF INHALER 8.7 GM INH SCH ×2 (09:02→21:47)
[2017-01-21] MEDS: DESITIN 4OZ/NYSTATIN 15 GRAM MIXTURE PASTE TOP SCH ×2 (09:03→21:47)
[2017-01-22] MEDS: ALBUTEROL/IPRATROPIUM 3 ML NEB RESP TX SCH ×6 (00:24→19:55)
[2017-01-22] MEDS: INSULIN REGULAR 100 UNIT/ML SUBCUT SCH ×4 (08:52→21:50)
[2017-01-22] MEDS: POLYETHYLENE GLYCOL POWDER 17 GM PACK PO SCH (08:53)
[2017-01-22] MEDS: INSULIN LISPRO 100 UNIT/ML SUBCUT SCH ×3 (08:53→18:12)
[2017-01-22] MEDS: FOLIC ACID 0.4 MG TABLET PO SCH (08:53)
[2017-01-22] MEDS: ASPIRIN EC 81 MG TABLET PO SCH (08:54)
[2017-01-22] MEDS: FLUCONAZOLE 100 MG TABLET PO SCH (08:54)
[2017-01-22] MEDS: FAMOTIDINE 20 MG TABLET PO SCH ×2 (08:54→20:57)
[2017-01-22] MEDS: PRAVASTATIN 40 MG TABLET PO SCH (08:54)
[2017-01-22] MEDS: FLUTICASONE 50 MCG NASAL SPRAY 16 GM BOTTLE BOTH NARES SCH ×2 (08:54→20:56)
[2017-01-22] MEDS: VALSARTAN/HCTZ 160-12.5 MG TABLET PO SCH (08:54)
[2017-01-22] MEDS: NYSTATIN 500,000 UNIT/5 ML UDCUP SWISH/SWAL SCH ×4 (08:54→20:57)
[2017-01-22] MEDS: ABACAVIR PO SCH (08:55)
[2017-01-22] MEDS: DOLUTEGRAVIR PO SCH (08:55)
[2017-01-22] MEDS: LAMIVUDI PO SCH (08:55)
[2017-01-22] MEDS: BECLOMETHASONE 80 MCG/PUFF INHALER 8.7 GM INH SCH ×2 (08:56→20:56)
[2017-01-22] MEDS: DESITIN 4OZ/NYSTATIN 15 GRAM MIXTURE PASTE TOP SCH ×2 (08:56→20:56)
[2017-01-22] MEDS: methylPREDNISolone SOD SUC 40 MG/1 ML VIAL IV SCH (08:57)
--- NOTE | 2017-01-22 20:58 | Discharge Summary ---
Hospital Course - Hospital Course Hospital Course: This is a 51 year old female with history of asthma with multiple exacerbations , DM, HTN, CR untreated, HIV, who was admitted for asthma exacerbation. She responded well over the last few days to corticosteroids and breathing treatments. She is ready for discharge. Diabetes is historically uncontrolled , and she has been on corticosteroid. However, she has lost 11 pounds over the last few weeks with dietary changes. Also, she was diagnosed with obstructive sleep apnea years ago, but never used her CPAP. Will set her up with sleep study outpatient. To some extent, hypoventilation from obesity is contributing to asthma exacerbations. Diagnosis - Discharge Diagnosis (1) Obstructive sleep apnea Status: Chronic (2) Asthma with exacerbation Status: Resolved (3) HTN (hypertension) Status: Chronic (4) Diabetes Status: Chronic (5) HIV (human immunodeficiency virus infection) Status: Chronic Specialty Discharge - Follow Up or Referrals Discharge Plan - Discharge Data Disposition: Disch To Home/Self Care Condition at Discharge: Stable Discharge Diet: diabetic diet Activity: increase activity as tolerated - Discharge Medications New Polyethylene Glycol Powder [Miralax] 17 gm PO DAILY Continue Insulin Lispro [HumaLOG KwikPen] 15 unit SUBCUT BID Linagliptin [Tradjenta] 5 mg PO DAILY Aspirin [Ecotrin] 81 mg PO DAILY Pravastatin Sodium 40 mg PO DAILY Insulin Glargine,Hum.rec.anlog [Lantus SoloStar] 30 unit SUBCUT AC SUPPER Famotidine 1 tablet PO BID Albuterol Sulfate [Proair HFA] 2 puff INH Q4H PRN #1 inhaler PRN Reason: Shortness Of Breath Beclomethasone 80 Mcg Inhaler [Qvar 80 Mcg] 80 mcg INH BID #1 inhaler Fluticasone 50 Mcg Nasal [place] [Flonase Nasal [place]] 1 spray BOTH NARES BID # 1 gm Valsartan/Hydrochlorothiazide [Valsartan-Hctz 160-12.5 mg Tab] 1 tablet PO DAILY Abacavir/Dolutegravir/Lamivudi [Triumeq Tablet] 1 tablet PO DAILY Folic Acid Tab 0.4 mg PO DAILY - Follow Up or Referral Follow Up: Meli Garcia DO [Physician] - Cathie Whaley MD [Physician] - - Forms/Instructions Instructions: Asthma (ED), Chronic Hypertension (DC) Additional Discharge Instructions: She needs to have appointment with Dr. Whaley for sleep study within next 2-3 weeks for untreated CR. Follow up with Dr. Chari Garcia in clinic with appointment already scheduled this month. Exam - Constitutional Vitals: Period Temp Pulse Resp BP Sys/Toro Pulse Ox Last 24 Hr 97.3 F-98.3 F 78-109 18-21 143-153/74-87 95-100 General appearance: no acute distress - Respiratory Respiratory exam: Present: wheezes (scattered and diffuse right lung) - Cardiovascular Cardiovascular exam: Present: regular rate and rhythm - GI/Abdominal GI/Abdominal exam: Present: soft. Absent: tenderness - Extremities Exam Extremities exam: Absent: edema - Neurological Exam Neurological exam: Present: alert, oriented X3, CN II-XII intact - Psychiatric Psychiatric exam: Present: normal mood - Skin Skin exam: Present: warm, dry Discharge Results Labs on day of discharge: Labs from last 24 hours 01/22/17 01/22/17 11:12 07:31 POC Glucose 273 H 251 H DS: Provider Date of admission: 01/15/17 23:56 Primary care physician: . No PCP Attending physician on admission: Meli Garcia DO Consults: 01/16/17 01:53 Consult to Dietitian [CONS] Routine Reason for Dietitian: Diet Instruction Consult Comment: diabetes 01/18/17 07:19 Consult to Physician [CONS] Routine Comment: Consulting Provider: Milka Honeycutt Person Notified: maria c Date Notified: 01/18/17 Time Notified: 11:38 Consult Notification Comment: Discharging clinician: Meli Garcia DO Expected date of discharge: 01/22/17
[2017-01-22 21:46] VITALS: BP 146/98
== END 2017-01-22 21:42 | disposition home or self-care (01) | DRG 202 ==
LOC: N.ED 21:27 → N.EDINP 23:56 → N.5E 01-16 00:14
PROVIDERS: ADMIT Internal Medicine; ATTEND Internal Medicine